=== PATIENT | male | born 1965 | race Two or more races ===

== ENCOUNTER 2023-08-03 15:00 | Emergency (ER) | payer OTHER ==
[~2023-08-03] VITALS: Ht 162.6 cm; Wt 74.8 kg
[2023-08-03] MEDS ORDERED: ONDA4TAB5 PO (16:41)
[2023-08-03 17:06] VITALS: BP 132/77; TEMP 97.9; O2SAT 98
== END 2023-08-03 17:12 | disposition home or self-care (01) ==
LOC: ER 15:02
DX: S06.0X0A Concussion without loss of consciousness, initial encounter (principal); S16.1XXA Strain of muscle, fascia and tendon at neck level, initial encounter; Z79.899 Other long term (current) drug therapy; W22.8XXA Striking against or struck by other objects, initial encounter; Y93.89 Activity, other specified; Y92.89 Other specified places as the place of occurrence of the external cause; Y99.8 Other external cause status
CPT/HCPCS: A4606; A4663